=== PATIENT | female | born 1955 | race Caucasian/White ===

== ENCOUNTER 2016-10-28 11:32 | Observation (INO) | payer OTHER ==
[~2016-10-28] VITALS: Ht 167.6 cm; Wt 139.1 kg
--- NOTE | 2016-10-29 08:06 | HP ---
ADMIT: 10/28/2016 RM/LOC: 402 [facility] MR#: [id number] [id number] [facility] [address] [place] [phone] RENU MACEDO [address] [address] History and Physical SEX: F AGE: 61 : 1955 DATE OF SERVICE: 10/28/2016 HISTORY OF PRESENT ILLNESS: Ms. Renu Macedo is a 61-year-old female with past medical history significant for hypertension, hyperlipidemia, atrial fibrillation, interstitial lung disease, obstructive sleep apnea on CPAP, GERD with Colvin's esophagus, depression, and nonalcoholic fatty liver disease. She presented to our [facility] after having an episode of lightheadedness, shortness of breath, and unresponsiveness at the [facility] just prior to initiating a Lexiscan. She is admitted for continued hypotension. Ms. Macedo states that she has been in her usual state of health. She has noticed over the last couple of weeks to months an increased shortness of breath with exertion. She does have some chest heaviness at times and has noted a decrease in exercise tolerance. She was seen for Dr. Moses with regard to this complaint on October 21, 2016, and it was decided for her to undergo a Lexiscan. Her prior cardiac assessment was approximately 2 years ago and was negative. The patient does have a history of interstitial lung disease. She tells me that she went and saw her bureau director, and a CT scan was repeated. The bureau director did not feel that her symptoms were secondary to her interstitial lung disease at this point in time. She tells me that with regard to her interstitial lung disease. She recently was tapered off prednisone. This was approximately 6 weeks ago. Her other complaints are that she does have some lower abdominal as well as right-sided flank pain. She states that the pain is more prevalent when she is moving or standing up and usually resolves itself when she is lying down. When she saw Josué in clinic on the 21 of October, she did have a UA that was negative as well as lab workup that was unrevealing. She tells me that Dr. Moses had told her to increase her fluid intake and that if she continued to have the pain that a CT scan might be warranted. She tells me that she was in her usual state of health until just before the Lexiscan was to begin. She states that she suddenly felt short of breath and lightheaded and then was unresponsive. She states that a similar episode has occurred in the past and was approximately 2- 3 years ago. She states that she was at work when this episode occurred and that her blood pressure on arrival to the emergency room was 80/40. She tells me that she was on a dopamine drip for 3 to 5 days because of her low blood pressure. She states that at that point in time, they thought that she was overdosing on her antihypertensives. However after she was discharged from the hospital, her primary care provider looked at her labs and noted that she had a low cortisol level that was less than 4 in the setting of the low blood pressure. There was some concern that she might have adrenal insufficiency. She states that she has never been tested for adrenal insufficiency. On her way to the emergency room this time around, she did have 1 episode of nausea and vomiting. She states that she felt this was secondary to not being able to see where she was going in the back of the ambulance. She also describes feeling quite weak at this point in time. Otherwise she is feeling well. She denies any changes to hearing or vision. She denies any fevers or chills. She denies any increased chest pain or shortness of breath other than her usual. She denies any abdominal pain. She denies any difficulties eating or drinking. She denies any difficulties urinating or using the bathroom. She ADMIT: 10/28/2016 RM/LOC: 402 [facility] MR#: [id number] [address] [id number] RENU MACEDO [address] [address] [address] [place] [address] History and Physical SEX: F AGE: 61 : 1955 has not noticed any blood in her stool or in her urine. She is not having burning with urination. In the emergency room, nursing noted that her initial blood pressure was 90/30s. This improved to 110s/50s within a matter of about an hour. When the emergency room physician went to assess the patient, the blood pressure recorded was 121/46. She did receive 2 L of normal saline in the emergency room as well as some Benadryl, Zofran, and Reglan. She is admitted for weakness as well as continued relative hypotension. PAST MEDICAL HISTORY: 1. Hypertension. 2. Hyperlipidemia. 3. Paroxysmal atrial fibrillation. 4. Obstructive sleep apnea with home CPAP. 5. Interstitial lung disease - allergic alveolitis and pneumonitis. 6. Nonalcoholic fatty liver disease. 7. GERD with Colvin esophagus. 8. History of benign ovarian tumor. 9. Vitamin D deficiency. 10.Depression. PAST SURGICAL HISTORY: 1. Cholecystectomy. 2. Hysterectomy with appendectomy. 3. Atrial ablations x2 for her paroxysmal atrial fibrillation. HOME MEDICATIONS: Include: 1. Abilify. 2. Aspirin 81 mg. 3. Bystolic 10. 4. Calcium carbonate and vitamin D supplement. 5. Flecainide. 6. Prozac. 7. Levomefolate. 8. Lisinopril 20. 9. Nortriptyline. 10.Pantoprazole 40. 11.Simvastatin 10. 12.Spironolactone-hydrochlorothiazide combination pill 25/25. ALLERGIES: NO KNOWN MEDICAL ALLERGIES. FAMILY MEDICAL HISTORY: Significant for hypertension and hyperlipidemia in both her mother and father. She also has brothers and sisters with diabetes as well as hypertension and hyperlipidemia. SOCIAL HISTORY: The patient denies any history of tobacco or alcohol use. ADMIT: 10/28/2016 RM/LOC: 402 [facility] MR#: [id number] [id number] [facility] [address] [place] [phone] RENU MACEDO [address] [place] [address] History and Physical SEX: F AGE: 61 : 1955 She denies any illicit drug use. 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 She is currently residing in [place] with her sister. In her spare time, she enjoys watching TV and making scrap blocks. REVIEW OF SYSTEMS: A complete review of system was obtained for this encounter. It is negative other than noted in the history of present illness. PHYSICAL EXAMINATION: VITAL SIGNS: On my arrival to her room, the patient had vital signs as follows; temperature 95.5 Fahrenheit, pulse of 59, respirations 14, blood pressure 115/53 and saturating at 99% on room air. GENERAL: She is lying in the hospital bed and appears to be quite comfortable. She is an obese female. HEENT: Normocephalic and atraumatic. Hearing is intact to conversation. She has intact extraocular muscles. She does not have any scleral icterus or conjunctival injection. Her nose is midline. She does have mildly dry mucous membranes. HEART: She is a bit bradycardic. She does have a regular rhythm. No murmurs or rubs detected. The exam is limited by her body habitus. LUNGS: Clear to auscultation on anterior exam. ABDOMEN: Her abdomen is distended with adiposity. It is soft. It is nontender. She does have hypoactive bowel sounds at this point in time. EXTREMITIES: Warm and well perfused. She does not have any evidence of edema or cyanosis. Her extremities are atraumatic. NEUROLOGIC: Grossly normal. PSYCHIATRIC: She has normal affect and mood. Her affect and mood are congruent. LABORATORY DATA: On admission to our hospital, she was noted to have a white count of 4.0, hemoglobin of 15.1, and platelets of 145 with normal differential. Her CMP was remarkable for a glucose of 139, creatinine of 1.2, and a calcium of 9.1, corrected. She also had a random cortisol that was obtained at the time of her initial labs in the emergency department that showed a random cortisol of 41.85. IMAGING: Significant for a chest radiograph that was unremarkable per the emergency room notes. I do not actually see the chest radiograph listed in her recent clinical results. She did have a CT of her head without contrast that did not demonstrate any acute hemorrhage, masses, or findings to suggest ischemia. ASSESSMENT AND PLAN: Ms. Renu Macedo is a 61-year-old female with past medical history significant for interstitial lung disease with intermittent use of steroids, paroxysmal atrial fibrillation, obstructive sleep apnea, hypertension, hyperlipidemia, nonalcoholic fatty liver disease and GERD with Colvin esophagitis, who presented after what sounds like a potential vasovagal incident just prior to the initiation of a Lexiscan for her increased shortness of breath and chest pressure and decreased exercise ADMIT: 10/28/2016 RM/LOC: 402 [facility] MR#: [id number] [address] [place] [phone] RENU MACEDO [facility] [place] [address] History and Physical SEX: F AGE: 61 : 1955 tolerance. 1. Relative hypotension with lightheadedness and a period of unresponsiveness: I suspect at this point in time this is a vasovagal response. Her blood pressure has responded quite nicely to the 2 L bolus. She does not have any symptoms to suggest an infection at this point in time. She does not have any evidence of any arrhythmia on her EKG, which demonstrated normal sinus rhythm. She has a random cortisol of close to 42 in the setting of the hypotension. This is an appropriate response. I have a low threshold for her actually having adrenal insufficiency at this point in time, although it is something that should be considered given her history of steroid use for her interstitial lung disease. At this point in time, she is stable. We will observe her overnight. If she continues to do well, we will consider discharge in the morning. 2. Lower abdominal and back pain. Her lab work on the 21 of October was unrevealing for this issue. Her UA was negative at that point in time, and it was suspected that she may have a kidney stone. Her symptoms have been unchanged since the and her lab work today does not provide further clues to the etiology of her lower abdominal and back pain. I suspect that she could have a CT as an outpatient if this remains stable. Otherwise, we will obtain a low-dose CT of the abdomen to assess for nephrolithiasis. She is encouraged to continue to drink plenty of fluids and have normal oral intake. 3. Chronic medical issues. At this point in time, we will hold her antihypertensives, but continue all the rest of her home medications. 4. Deep venous thrombosis prophylaxis: For DVT prophylaxis, we will place her on Lovenox 40 mg subcutaneously daily. 5. Respiratory prophylaxis: We will have her use an incentive spirometer at this point in time. 6. Discharge likely within the next 24 to 48 hours. We will have PT and OT see her for her weakness; however, I suspect that this weakness is related to her hypotension and vasovagal event. We will have her Lexiscan rescheduled as an outpatient. Priyanka Marquez MD Resident / Simin Ortega MD / silva JOB #: [id number] CC: Nikolay Moses MD, Attending Physician Nikolay Moses MD, Family Physician
[2016-10-30] MEDS ORDERED: PROTONIX40 MG PO (10:36)
[2016-10-30] MEDS ORDERED: ZOCOR DPS10 MG PO (10:37)
[2016-10-30] MEDS ORDERED: BYSTOLIC5 MG PO (10:37)
[2016-10-30] MEDS ORDERED: PROZAC40 MG PO (10:37)
[2016-10-30] MEDS ORDERED: PAMELOR DPS50 MG PO (10:37)
[2016-10-30] MEDS ORDERED: TAMBOCOR100 MG PO (10:37)
[2016-10-30] MEDS ORDERED: ABILIFY5 MG PO (10:37)
[2016-10-30] MEDS ORDERED: CALTRATE-600 D600 MG PO (10:38)
[2016-10-30] MEDS ORDERED: VITAMIN D5000 UNI1 PO (10:38)
[2016-10-30] MEDS ORDERED: DEPLIN-ALGAL O1 EACH PO (10:38)
[2016-10-30] MEDS ORDERED: ASA CHILDREN'S81 MG PO (10:39)
--- NOTE | 2016-11-06 17:59 | ER ---
ADMIT: 10/28/2016 RM/LOC: 402 [facility] MR#: [id number] 26[address] [facility] [address] [place] [phone] RENU CALI [address] [facility] [address] [place] [address] Emergency Room Report SEX: F AGE: 61 : 1955 DATE: 10/28/2016 CHIEF COMPLAINT: Nausea and vomiting. HISTORY OF PRESENT ILLNESS: The patient is a 61-year-old female, who was getting a stress test evaluation done at [facility] when she developed acute onset of nausea, vomiting, lightheadedness, and sweating. She had been having several weeks if not months of some shortness of breath and that is why she was getting a stress test done, she was not getting this done for any complaints of chest pain. She has no new issues with interstitial lung disease, which she states is from exposure to birds. She has no coronary artery disease history, but does have a history of ablation twice before and she states as far as she knows always in sinus rhythm. The patient reports that she had not started the stress test yet but they were trying to get an IV and had poked her several times and in the process, she became lightheaded and very nauseous. She felt like she was going to pass out, but did not. She never had any pain at this time and her baseline shortness of breath is not any worse. REVIEW OF SYSTEMS: Ten-point review of systems is done and otherwise negative except as in HPI. PAST MEDICAL HISTORY: Significant for hypertension; high cholesterol; Colvin esophagus; GERD; paroxysmal atrial fibrillation, now resolved after ablation; and interstitial lung disease. PAST SURGICAL HISTORY: She has had a cholecystectomy, hysterectomy, and history of coronary ablation x2. MEDICATIONS: See nurse's note. ALLERGIES: NONE. SOCIAL HISTORY: Denies smoking, drug, or alcohol use. PHYSICAL EXAMINATION: VITAL SIGNS: Blood pressure was 121/46, initially with a heart rate of 50, her sats were 100% and she was afebrile. Respiratory rate was 16. HEENT: Head is atraumatic. Pupils are equal, round, and reactive to light. NECK: Supple. HEART: Bradycardic. LUNGS: Clear to auscultation. ABDOMEN: Obese, soft, and nontender. SKIN: Slightly pale. Diaphoretic. She does have equal pulses in all 4 extremities. She has no significant pedal edema noted and no calf tenderness. DIAGNOSTIC DATA: EKG shows sinus bradycardia, rate of 50. CBC shows a white count of 4.0 and platelets 145, otherwise normal and chemistry showed a creatinine of 1.2, otherwise normal. Troponin was less than 0.015. ADMIT: 10/28/2016 RM/LOC: 402 [facility] MR#: [id number] [address] [id number] RENU CALI [address] [place] [address] Emergency Room Report SEX: F AGE: 61 : 1955 EMERGENCY DEPARTMENT COURSE: The patient arrived. She did appear uncomfortable, was diaphoretic and felt like she was extremely nauseated. We went ahead and got an IV started. I gave her Zofran followed by Reglan IV and her symptoms of nausea gradually got better. She did experience some problems with hypotension for a brief while in part of the reason why the patient was lying on her side and blood pressure cuff was on the upper arm. We had the patient lie on her back. Her blood pressures were still hypotensive, but not nearly as severe. While she was in the ER, she got a total of 2 L of normal saline and a third was started. Because she has had a similar episode of this a couple of years ago which required admission and I believe that she may have some improvement with hydrocortisone, she was given a stress dose hydrocortisone in the Emergency Department. She does not have a diagnosis of adrenal insufficiency and is not normally on steroids routinely. She has been on steroids in the past for lungs, but it has been approximately a month and she had been on her last dose of prednisone. Due to the patient's persistent symptoms of feeling lightheaded, nausea, and vomiting, I will be admitting her for further observation. I spoke to Dr. Ortega, who is on for the patient's primary care physician, and she is admitted in stable condition. DIAGNOSES: 1. Likely vasovagal episode. 2. Persistent nausea and vomiting. 3. Hypotension. 4. Lightheaded. Yg Kenney MD/ silva JOB #: [id number] CC: Nikolay Moses MD, Attending Physician Nikolay Moses MD, Family Physician
--- NOTE | 2016-11-08 07:53 | DS ---
ADMIT: 10/28/2016 RM/LOC: 402 [facility] MR#: [id number] 26[address] [facility] [address] [place] [phone] RENU CALI [address] [address] Discharge Summary SEX: F AGE: 61 : 1955 ADMISSION DATE: 10/28/2016 DISCHARGE DATE: 10/29/2016 DISCHARGE DIAGNOSES: 1. Vasovagal. 2. Hypotension. 3. History of hypertension. 4. Hyperlipidemia. 5. Paroxysmal atrial fibrillation. 6. Obstructive sleep apnea. 7. Interstitial lung disease. 8. Nonalcoholic fatty liver disease. 9. Gastroesophageal reflux disease with Colvin's esophagus. 10.History of benign ovarian tumor. 11.Vitamin D deficiency. 12.Depression. HOSPITAL COURSE: The patient was admitted after having an episode where she vasovagaled during a stress test. She apparently had had an episode previous to this two years ago. Nonetheless, she had a vasovagal episode. She was fluid resuscitated in the ER, but they felt that she still needed to be admitted as she was pretty unsteady. We monitored her overnight, gave her a little bit of fluids, held her blood pressure medications, and she felt good the next morning, and had no further episodes. She did have a cortisol level, which was 41. Otherwise, patient was doing quite well and the plan was for her to be discharged home. DISCHARGE INSTRUCTIONS: She was to continue all of her home medications; however, she was to hold her lisinopril, spironolactone, and hydrochlorothiazide for two weeks and then resume them. Otherwise, the patient was to resume all the rest of her home meds. She needs to get her stress test rescheduled. I figured we will wait until after she sees Dr. Moses in followup for that and then then can decide when they went to reschedule that. Simin Ortega MD/ rolando JOB #: [id number] CC: Nikolay Moses MD, Attending Physician Nikolay Moses MD, Family Physician
== END 2016-10-29 11:15 | disposition home or self-care (01) ==
LOC: ER 11:32 → 4PCU 14:45
PROVIDERS: ADMIT Internal Medicine
DX: R55 Syncope and collapse (principal); I95.9 Hypotension, unspecified; J84.9 Interstitial pulmonary disease, unspecified; K76.0 Fatty (change of) liver, not elsewhere classified; I10 Essential (primary) hypertension; E78.00 Pure hypercholesterolemia, unspecified; K22.70 Barrett's esophagus without dysplasia; K21.9 Gastro-esophageal reflux disease without esophagitis; E78.5 Hyperlipidemia, unspecified; G47.33 Obstructive sleep apnea (adult) (pediatric); F32.9 Major depressive disorder, single episode, unspecified; E55.9 Vitamin D deficiency, unspecified; Z79.82 Long term (current) use of aspirin; I48.0 Paroxysmal atrial fibrillation; J98.4 Other disorders of lung; Z90.49 Acquired absence of other specified parts of digestive tract; Z90.710 Acquired absence of both cervix and uterus; Z79.899 Other long term (current) drug therapy